=== PATIENT | male | born 1990 ===

== ENCOUNTER 2016-08-28 14:05 | Day surgery (SDC) | payer OTHER ==
[~2016-08-28] VITALS: Ht 170.2 cm; Wt 74.2 kg
[2016-08-28 14:18] VITALS: BP 134/76; PULSE 95; TEMP 97.7
[2016-08-28] MEDS ORDERED: TYLENOL 325MG325 MG PO (14:41)
[2016-08-28] MEDS ORDERED: BENTYL 20MG20 MG/TAB PO (15:06)
[2016-08-28] MEDS ORDERED: LIALDA 1.2 GM1.2 GM PO (15:07)
[2016-08-28] MEDS ORDERED: ULTRAM 50MG TAB50 MG PO (15:07)
[2016-08-28 15:45] VITALS: BP 113/77; PULSE 125; TEMP 97.7
[2016-08-28 16:00] VITALS: BP 112/73; PULSE 133
[2016-08-28] MEDS ORDERED: CANASA 1000MG1000 MG RC (16:02)
[2016-08-28 16:15] VITALS: BP 122/80; PULSE 133
== END 2016-08-28 16:26 | disposition home or self-care (01) ==
LOC: SDCO 14:05
DX: K51.211 Ulcerative (chronic) proctitis with rectal bleeding (principal); F41.9 Anxiety disorder, unspecified; Z87.891 Personal history of nicotine dependence; Z79.899 Other long term (current) drug therapy
CPT/HCPCS: J2250; J3010; J7030